=== PATIENT | male | born 1945 | race Caucasian/White ===

== ENCOUNTER 2020-05-18 15:47 | Outpatient (CLI) | payer MEDICARE, BC ==
--- NOTE | 2020-05-18 16:05 | RAD ---
XR Chest Pa Lat STANDARD History: Cough Comparison: Radiograph 2011 Findings: Heart size is enlarged. AICD/pacer leads are similar. Abnormal peripheral and perihilar airspace opacities. Impression: Imaging findings of Covid pneumonia.
[2020-05-18 18:29] LABS: #Lymphocytes 0.5 thou/uL (1.20-3.40); #Monocytes 0.5 thou/uL (0.11-0.59); #Neutrophils 10.1 thou/uL (1.40-6.50); %Basophils 0.1 % (0.0-1.0); %Eosinophils 0.2 % (0.0-10.0); %Lymphocytes 4.7 % (21.0-51.0); %Monocytes 4.3 % (0.0-10.0); %Neutrophils 90.7 % (42.0-75.0); Hemoglobin 13.4 g/dL (14.0-18.0); Mean Corpuscular HGB CONC 34.2 g/dL (32.0-36.0); Mean Corpuscular Hemoglobin 31.8 pg (27.0-31.0); Platelet Count 141 thou/uL (130-400); RBC Distribution Width 12.6 % (11.5-14.5); Red Blood Cell (RBC) Count 4.19 mill/uL (4.70-6.10); White Blood Cell (WBC) Count 11.1 thou/uL (4.8-10.8)
[2020-05-18 19:05] LABS: ALT (SGPT) 22 U/L (8-55); AST (SGOT) 21 U/L (5-34); Albumin 3.3 g/dL (3.4-4.8); Alkaline Phosphatase 88 U/L (40-110); Anion Gap 15 mmol/L (10-20); BUN (Urea Nitrogen) 14 mg/dL (8.4-25.7); Bilirubin, Total 0.4 mg/dL (0.2-1.2); CRP (Inflammatory) 28.48 mg/dL (= or < 0.5); Calc. Creatinine Clearance 0 mL/min (70-130); Calcium 7.5 mg/dL (7.8-10.44); Carbon Dioxide 26 mmol/L (23-31); Chloride 101 mmol/L (98-107); Globulin 2.2 g/dL (2.4-3.5); Glucose 115 mg/dL (83-110); Potassium 3.7 mmol/L (3.5-5.1); Protein, Total 5.5 g/dL (5.8-8.1); Sodium 138 mmol/L (136-145)
== END 2020-05-18 15:48 | disposition home or self-care (01) ==
LOC: SCSRAD 15:47
PROVIDERS: ATTEND Family Medicine
DX: U07.1 COVID-19 (principal); I50.9 Heart failure, unspecified
CPT/HCPCS: 36415; 71046; 80053; 82728; 83880; 85025; 85379; 85652; 86140

== ENCOUNTER 2020-06-09 10:55 | Inpatient (IN) | payer MEDICARE, BC ==
[2020-06-09 12:36] VITALS: BMI 27.4
[2020-06-09] MEDS ORDERED: Ondansetron ODT 4 MG TAB PO PRN (12:57)
[2020-06-09] MEDS ORDERED: Acetaminophen 325 MG TAB PO PRN (12:57)
[2020-06-09] MEDS ORDERED: Calcium Carbonate 500 MG ChewTAB PO PRN (12:57)
[2020-06-09] MEDS ORDERED: predniSONE 20 MG TAB PO SCH (13:00)
[2020-06-09 13:34] LABS: #Basophils 0.1 thou/uL (0.0-0.2); #Eosinphils 0.1 thou/uL (0.0-0.7); #Lymphocytes 1.4 thou/uL (1.20-3.40); #Monocytes 0.8 thou/uL (0.11-0.59); #Neutrophils 4.2 thou/uL (1.40-6.50); %Basophils 0.8 % (0.0-1.0); %Eosinophils 1.4 % (0.0-10.0); %Lymphocytes 21.6 % (21.0-51.0); %Monocytes 11.6 % (0.0-10.0); %Neutrophils 64.7 % (42.0-75.0); Hemoglobin 12.7 g/dL (14.0-18.0); Mean Corpuscular HGB CONC 34.5 g/dL (32.0-36.0); Mean Corpuscular Volume 92.9 fL (78.0-98.0); Platelet Count 150 thou/uL (130-400); RBC Distribution Width 13.3 % (11.5-14.5); Red Blood Cell (RBC) Count 3.96 mill/uL (4.70-6.10); White Blood Cell (WBC) Count 6.5 thou/uL (4.8-10.8)
[2020-06-09] MEDS ORDERED: Furosemide 40 MG/4 ML VIAL SLOW IVP SCH (13:45)
[2020-06-09 13:56] LABS: ALT (SGPT) 10 U/L (8-55); AST (SGOT) 11 U/L (5-34); Albumin 3.3 g/dL (3.4-4.8); Alkaline Phosphatase 92 U/L (40-110); Anion Gap 14 mmol/L (10-20); BUN (Urea Nitrogen) 18 mg/dL (8.4-25.7); Bilirubin, Total 0.7 mg/dL (0.2-1.2); Calc. Creatinine Clearance 78 mL/min (70-130); Carbon Dioxide 30 mmol/L (23-31); Chloride 102 mmol/L (98-107); Globulin 3.1 g/dL (2.4-3.5); Glucose 107 mg/dL (83-110); Potassium 3.7 mmol/L (3.5-5.1); Protein, Total 6.4 g/dL (5.8-8.1); Sodium 142 mmol/L (136-145)
--- NOTE | 2020-06-09 14:00 | RAD ---
XR Chest Pa Lat STANDARD History: Shortness of breath Comparison: Radiograph 2 days prior Findings: Similar appearance of the peripheral and perihilar opacities. No pneumothorax. AICD/pacer i s similar. Multiple midline sternotomy wires. Left upper quadrant and right upper quadrant surgical clips. Intact left shoulder arthroplasty. Impression: Similar appearance of the chest without pneumothorax or pneumomediastinum.
--- NOTE | 2020-06-09 14:32 | PDOC.FPRHP ---
- History of Present Illness Chief Complaint: sob History of Present Illness: 74-year-old male with past medical history of CAD status post three-vessel CABG and CHF with reported history of 35% ejection fraction. He presents as a direct admit from home for shortness of breath. He was diagnosed with a positive Covid test on May 05 and had symptoms of cough congestion and shortness of breath. He had fevers as well. Initially he improved but in the last week or 2 he has worsened. He states his shortness of breath has gotten worse however he has been afebrile. He states it is now difficult for him to have a conversation because he becomes so short of breath. No chest pain no palpitations - Allergies/Adverse Reactions Allergies Allergy/AdvReac Type Severity Reaction Status Date / Time hydrocodone Allergy Verified 06/09/20 13:45 - Home Medications Medication Instructions Recorded Confirmed Type Acetaminophen [Tylenol] 500 mg PO Q6HR PRN 06/09/20 06/09/20 History Amlodipine [Norvasc] 5 mg PO HS 06/09/20 06/09/20 History Aspirin [Ecotrin] 81 mg PO DAILY 06/09/20 06/09/20 History Atorvastatin Calcium [Lipitor] 20 mg PO HS 06/09/20 06/09/20 History Carvedilol [Coreg] 6.25 mg PO BID 06/09/20 06/09/20 History Cholecalciferol (Vitamin D3) 4,000 unit PO DAILY 06/09/20 06/09/20 History [Vitamin D] Clopidogrel Bisulfate [Plavix] 75 mg PO DAILY 06/09/20 06/09/20 History Dexlansoprazole [Dexilant] 60 mg PO DAILY 06/09/20 06/09/20 History Fluticasone/Salmeterol [Advair 1 inh IH BID 06/09/20 06/09/20 History Diskus 100/50] Furosemide [Lasix] 40 mg PO DAILY 06/09/20 06/09/20 History Losartan Potassium [Cozaar] 50 mg PO HS 06/09/20 06/09/20 History Magnesium Chloride [Slow-Mag] 64 mg PO BID 06/09/20 06/09/20 History Melatonin 2.5 mg PO HS 06/09/20 06/09/20 History Niacin 500 mg PO HS 06/09/20 06/09/20 History Nitroglycerin [Nitrolingual 0.4 mg 1 spray SL Q5MIN PRN 06/09/20 06/09/20 History [place]] QUEtiapine Fumarate [Seroquel] 50 mg PO HS 06/09/20 06/09/20 History Ubidecarenone [Co Q-10] 100 mg PO BID 06/09/20 06/09/20 History - History PMHx: CAD s/p CABG and stents, presence of AICD, CHF, COPD, HTN, Hx of [place] PSHx: shoulder surgery FHx: [place], lung cancer Social: former smoker (14 pack year), no Alcohol or drugs - Review of Systems General: reports: fatigue. denies: fever/chills Eyes: denies: eye pain, vision changes ENT: reports: nasal congestion. denies: rhinorrhea Respiratory: reports: cough, congestion, shortness of breath Cardiovascular: denies: chest pain, palpitation Gastrointestinal: denies: nausea, vomiting Genitourinary: denies: incontinence, dysuria Skin: denies: rashes, lesions Musculoskeletal: denies: pain, tenderness Neurological: denies: numbness, syncope, seizure Psychological: denies: anxiety, depression - Vital signs BP: [133/84] HR: [68] RR: [20] Tmax: [98.5] Pox: [97]% on [ra] Wt: [89] - Physical Exam Constitutional: NAD, awake, alert and oriented HEENT: EOMI, grossly normal vision, grossly normal hearing Neck: supple, FROM Chest: no-tender to palpation, no lesions Heart: RRR, normal S1/S2 -Lungs: diffuse expiratory wheezing, crackels Abdomen: soft, non-tender Musculoskeletal: normal structure, normal tone Neurological: no focal deficit, CN II-XII intact Skin: no rash/lesions, good turgor Heme/Lymphatic: no unusual bruising or bleeding, no purpura Psychiatric: normal mood and affect, good judgment and insight FMR H&P: Results - Labs Result Diagrams: 06/10/20 05:47 06/10/20 05:47 Lab results: WBC 6.5 thou/uL (4.8-10.8) 06/09/20 13:23 Hgb 12.7 g/dL (14.0-18.0) L 06/09/20 13:23 Hct 36.8 % (42.0-52.0) L 06/09/20 13:23 MCV 92.9 fL (78.0-98.0) 06/09/20 13:23 Plt Count 150 thou/uL (130-400) 06/09/20 13:23 Neutrophils % 64.7 % (42.0-75.0) 06/09/20 13:23 Sodium 142 mmol/L (136-145) 06/09/20 13:23 Potassium 3.7 mmol/L (3.5-5.1) 06/09/20 13:23 Chloride 102 mmol/L (98-107) 06/09/20 13:23 Carbon Dioxide 30 mmol/L (23-31) 06/09/20 13:23 BUN 18 mg/dL (8.4-25.7) 06/09/20 13:23 Creatinine 1.06 mg/dL (0.7-1.3) 06/09/20 13:23 Glucose 107 mg/dL (83-110) 06/09/20 13:23 Calcium 9.0 mg/dL (7.8-10.44) 06/09/20 13:23 Total Bilirubin 0.7 mg/dL (0.2-1.2) 06/09/20 13:23 AST 11 U/L (5-34) 06/09/20 13:23 ALT 10 U/L (8-55) 06/09/20 13:23 Alkaline Phosphatase 92 U/L (40-110) 06/09/20 13:23 Serum Total Protein 6.4 g/dL (5.8-8.1) 06/09/20 13:23 Albumin 3.3 g/dL (3.4-4.8) L 06/09/20 13:23 FMR H&P: A/P - Plan ROMERO PENN PGY3 Assessment and plan COPD exacerbation A- patient is stable on room air, exacerbation will be treated with steroids and duo nebs. Considering no changes in sputum for the worse no antibiotics required at this time. Chest x-ray unchanged from previous. Will get EKG P-prednisone 40 mg x 5 days -DuoNebs scheduled every 6 hours, every 2 hours as needed -Goal O2 sat is above 88% CHF exacerbation A- patient reported ejection fraction of 35%, will repeat. Patient is stable on room air. At home he is on 80 mg p.o. Lasix every morning P-furosemide 80 mg IV twice daily -Strict ins and outs -Daily weights -Fluid restriction diet Covid PUI Considering possibility that patient may still be shedding virus will repeat test. If negative will take off isolation precautions. Hypertension, COPD, presence of AICD, CAD status post CABG and stents Stable, continue home medications CODE STATUS: DNAR PCP Cierra Disposition: Observation, expect less than 2 midnights FMR H&P: Upper Level - Plan Date/Time: 06/09/20 1714 I, [], have evaluated this patient and agree with findings/plan as outlined by manager of internal audit resident. Pertinent changes/additions are listed here. Addendum - Attending - Attending Attestation Date/Time: 06/10/20 [id number] I personally evaluated the patient and discussed the management with Dr. Penn yesterday. I agree with the History, Examination, Assessment and Plan documented above with any addition or exceptions noted below. I think there is both a CHF and COPD component to Mr. Kinney's illness. We are treating both.
[2020-06-09] MEDS ORDERED: Albuterol 200 PUFF (6.7GM INHALER) INH PRN (17:15)
[2020-06-09] MEDS: Albuterol 200 PUFF (6.7GM INHALER) INH SCH (18:21)
[2020-06-09] MEDS: Carvedilol 6.25 MG TAB PO SCH (20:51)
[2020-06-09] MEDS: Magnesium Chloride 64 MG TAB PO SCH (20:52)
[2020-06-09] MEDS: Atorvastatin Calcium 20 MG TAB PO SCH (20:52)
[2020-06-09] MEDS: Amlodipine 5 MG TAB PO SCH (20:52)
[2020-06-09] MEDS: Losartan 25 MG TAB PO SCH (20:52)
[2020-06-09] MEDS: Niacin 500 MG TAB PO SCH (20:53)
[2020-06-09] MEDS: Ubidecarenone 50 MG CAP PO SCH (20:53)
[2020-06-09] MEDS ORDERED: Melatonin 3 MG TAB PO SCH (21:00)
[2020-06-10] MEDS: Albuterol 200 PUFF (6.7GM INHALER) INH SCH ×4 (01:37→18:32)
[2020-06-10] MEDS: Furosemide 40 MG/4 ML VIAL SLOW IVP SCH ×2 (05:48→13:54)
[2020-06-10 06:17] LABS: #Lymphocytes 1.4 thou/uL (1.20-3.40); #Monocytes 0.6 thou/uL (0.11-0.59); #Neutrophils 7.1 thou/uL (1.40-6.50); %Basophils 0.1 % (0.0-1.0); %Eosinophils 0.2 % (0.0-10.0); %Lymphocytes 15.3 % (21.0-51.0); %Monocytes 6.3 % (0.0-10.0); %Neutrophils 78.1 % (42.0-75.0); Hemoglobin 12.4 g/dL (14.0-18.0); Mean Corpuscular HGB CONC 33.5 g/dL (32.0-36.0); Mean Corpuscular Hemoglobin 30.6 pg (27.0-31.0); Mean Corpuscular Volume 91.1 fL (78.0-98.0); Mean Platelet Volume 7.2 fL (7.4-10.4); Platelet Count 167 thou/uL (130-400); RBC Distribution Width 13.3 % (11.5-14.5); Red Blood Cell (RBC) Count 4.05 mill/uL (4.70-6.10)
[2020-06-10 06:40] LABS: Anion Gap 15 mmol/L (10-20); BUN (Urea Nitrogen) 21 mg/dL (8.4-25.7); Calc. Creatinine Clearance 76 mL/min (70-130); Calcium 8.9 mg/dL (7.8-10.44); Carbon Dioxide 27 mmol/L (23-31); Chloride 102 mmol/L (98-107); Glucose 114 mg/dL (83-110); Potassium 3.9 mmol/L (3.5-5.1); Sodium 140 mmol/L (136-145)
--- NOTE | 2020-06-10 06:54 | PDOC.FM ---
- Subjective Subjective: Pt states he is feeling much better after diuresis yesterday. He is still having coughing and reports pain in ribs with coughing. He was taking a cough suppressant at home that had been working but he is unsure of the name. - Objective Vital Signs & Weight: Vital Signs (12 hours) Temp Pulse Resp BP BP Pulse Ox 06/10/20 04:00 97.9 F 80 18 109/75 93 L 06/10/20 00:37 97.8 F 68 18 101/67 93 L 06/10/20 00:09 93 L 06/09/20 20:52 79 116/78 06/09/20 20:51 116/78 06/09/20 20:00 98.3 F 79 20 116/78 93 L Weight Weight 86.9 kg I&O: 06/08/20 06/09/20 06/10/20 06:59 06:59 06:59 Intake Total 900 Output Total 1800 Balance -900 Result Diagrams: 06/10/20 05:47 06/11/20 06:07 Phys Exam - Physical Examination Constitutional: NAD was able to have conversation, had periodic coughing HEENT: sclera anicteric Neck: supple, full ROM Mild expiratory wheezing on R lower lung [place] Cardiovascular: RRR, no significant murmur Gastrointestinal: soft, non-tender Musculoskeletal: no edema Neurological: non-focal, moves all 4 limbs Psychiatric: normal affect, A&O x 3 Skin: no rash Dx/Plan - Plan Plan: COPD exacerbation w/ component of CHF exacerbation -pt has hx of COPD and was diagnosed with COVID on 05/05/20 -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[facility], pt reports EF of 35%, pending echo -has lasix po as home med, was started on IV lasix in hospital with good urine output -BNP 59 -CXR: unchanged from previous -steroids and duonebs started on admission -strict I/Os, -900mL since admission -will continue IV lasix and monitor clinical improvement -has not required supplemental oxygen since admission, will have nursing do walking trial Hx of Covid -aware, positive test result on 05/05/20 -test here is negative Hypertension, COPD, presence of AICD, CAD status post CABG and stents Stable, continue home medications CODE STATUS: DNAR PCP Cierra Disposition: Admit medical service obs, will discharge when clinical picture improved, expected LOS < 48hrs Addendum - Attending - Attending Attestation Date/Time: 06/11/20 0712 I personally evaluated the patient and discussed the management with Dr. Garcia yesterday. I agree with the History, Examination, Assessment and Plan documented above with any addition or exceptions noted below.
[2020-06-10] MEDS: Aspirin 81 mg Enteric Coated Tablet PO SCH (07:59)
[2020-06-10] MEDS: Carvedilol 6.25 MG TAB PO SCH ×2 (08:00→20:05)
[2020-06-10] MEDS: Cholecalciferol 1,000 UNITS (25 MCG) TAB PO SCH (08:00)
[2020-06-10] MEDS: Clopidogrel Bisulfate 75 MG TAB PO SCH (08:00)
[2020-06-10] MEDS: Benzonatate 100 MG CAP PO PRN ×2 (08:00→20:06)
[2020-06-10] MEDS: Magnesium Chloride 64 MG TAB PO SCH ×2 (08:01→20:06)
[2020-06-10] MEDS: Ubidecarenone 50 MG CAP PO SCH ×2 (08:01→20:06)
[2020-06-10] MEDS: predniSONE 20 MG TAB PO SCH (08:01)
[2020-06-10] MEDS: Enoxaparin Sodium 40 MG/0.4 ML SYRINGE SC SCH (08:02)
[2020-06-10 08:31] LABS: SARS-CoV-2 PCR by NAA Not Detected (NotDetected)
[2020-06-10] MEDS ORDERED: Furosemide 40 MG TAB PO SCH (09:00)
[2020-06-10] MEDS: Amlodipine 5 MG TAB PO SCH (20:04)
[2020-06-10] MEDS: Losartan 25 MG TAB PO SCH (20:05)
[2020-06-10] MEDS: Atorvastatin Calcium 20 MG TAB PO SCH (20:06)
[2020-06-10] MEDS: Niacin 500 MG TAB PO SCH (20:06)
[2020-06-10] MEDS ORDERED: Melatonin 3 MG TAB PO SCH (21:00)
--- NOTE | 2020-06-11 05:58 | PDOC.FM ---
- Subjective Subjective: Pt says he feels about the same as yesterday. Still having SOB and feeling tired. He says sx have been the same for about 3 weeks. Tolerating diet. - Objective Vital Signs & Weight: Vital Signs (12 hours) Temp Pulse Resp BP Pulse Ox 06/11/20 04:00 97.7 F 73 20 99/65 93 L 06/11/20 00:38 94 L 06/11/20 00:00 98.4 F 86 18 96/58 L 94 L 06/10/20 20:04 85 06/10/20 20:00 98.0 F 86 20 120/80 94 L Weight Weight 86.9 kg I&O: 06/09/20 06/10/20 06/11/20 06:59 06:59 06:59 Intake Total 900 Output Total 1800 Balance -900 Result Diagrams: 06/10/20 05:47 06/11/20 06:07 Phys Exam - Physical Examination Constitutional: NAD pt tachypneic, not able to complete full sentences HEENT: sclera anicteric Neck: supple, full ROM tachypneic, mild end exp wheezing Cardiovascular: RRR, no significant murmur Gastrointestinal: soft, non-tender Musculoskeletal: no edema Neurological: non-focal, moves all 4 limbs Psychiatric: normal affect, A&O x 3 Skin: no rash Dx/Plan - Plan Plan: COPD exacerbation w/ component of CHF exacerbation -pt has hx of COPD and was diagnosed with COVID on 05/05/20 -echo: EF 35-40% w/ grade 1/3 diastolic dysfunction -has lasix po as home med, was started on IV lasix in hospital with good urine output -BNP 59 -CXR: unchanged from previous -steroids and duonebs started on admission -strict I/Os, -900mL since admission -will continue IV lasix and monitor clinical improvement -has not required supplemental oxygen since admission -nurse did walking test yesterday and O2 sats stayed above 93% on room air -pt continues to be tachypneic but with normal O2 sats, will order d-dimer, b/l LE venous doppler and abg to further assess. 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 Garcia. I agree with the History, Examination, Assessment and Plan documented above with any addition or exceptions noted below. His RODRIGUEZ adn shortness of breath has responded to lasix and COPD treatment. His cardiac echo is at baseline. His O2 sats have remained at 93-95% on RA even with walking, so he has not qualified for home oxygen. DVT eval is negative and ABG does not reveal an aA gradient to suggest a PE. He appears to have lingering sequelae form his covid pneumonia last month. We are considering discharge with follow up next week.
[2020-06-11 06:40] LABS: Anion Gap 12 mmol/L (10-20); BUN (Urea Nitrogen) 36 mg/dL (8.4-25.7); Calc. Creatinine Clearance 46 mL/min (70-130); Calcium 9.1 mg/dL (7.8-10.44); Carbon Dioxide 32 mmol/L (23-31); Chloride 99 mmol/L (98-107); Glucose 108 mg/dL (83-110); Potassium 3.4 mmol/L (3.5-5.1); Sodium 140 mmol/L (136-145)
[2020-06-11] MEDS: Furosemide 40 MG/4 ML VIAL SLOW IVP SCH (06:52)
[2020-06-11] MEDS: Albuterol 200 PUFF (6.7GM INHALER) INH SCH ×3 (06:58→13:30)
[2020-06-11] MEDS: Aspirin 81 mg Enteric Coated Tablet PO SCH (08:37)
[2020-06-11] MEDS: Carvedilol 6.25 MG TAB PO SCH (08:37)
[2020-06-11] MEDS: predniSONE 20 MG TAB PO SCH (08:37)
[2020-06-11] MEDS: Clopidogrel Bisulfate 75 MG TAB PO SCH (08:38)
[2020-06-11] MEDS: Magnesium Chloride 64 MG TAB PO SCH (08:38)
[2020-06-11] MEDS: Cholecalciferol 1,000 UNITS (25 MCG) TAB PO SCH (08:38)
[2020-06-11] MEDS: Enoxaparin Sodium 40 MG/0.4 ML SYRINGE SC SCH (08:39)
[2020-06-11] MEDS: Ubidecarenone 50 MG CAP PO SCH (08:39)
[2020-06-11] MEDS ORDERED: Potassium Chloride 20 MEQ TAB PO SCH (10:15)
[2020-06-11 12:06] LABS: Actual Bicarbonate (HCO3a) 27.4 mEq/L (22-28); Base Excess (BEa) 3.9 mEq/L (-2.0 to +3.0); CO2 Tension 37.7 mmHg (35.0-45.0); Calcium, Ionized (arterial) 1.19 mmol/L (1.12-1.30); Hemoglobin (Hb) 14.6 g/dL (14.0-18.0); O2 Tension (PaO2), arterial 64.8 mmHg (> 70.0); Potassium - ABG Lab 3.85 mmol/L (3.70-5.30); pH, Arterial 7.48 (7.35-7.45)
[2020-06-11 12:10] LABS: Puncture Site RRA
[2020-06-11 12:11] LABS: ALV-art Gradient 37.805 mmHg (0-20)
[2020-06-11 13:21] LABS: Thyroid Stimulating Hormone 1.8997 uIU/mL (0.35-4.94)
[2020-06-11 13:38] LABS: Vitamin D, 25 Hydroxy 48.8 ng/ml (> 30.0)
--- NOTE | 2020-06-11 14:52 | ULT ---
US Venous Doppler Bilat History: Tachypnea Comparison: None. Findings: Real-time grayscale, color and spectral analysis of the bilateral lower extremity venous sy stem was performed. The common femoral, femoral, proximal portions greater saphenous and deep femoral veins as well as the popliteal and posterior tibial veins were interrogated. Normal flow, augmentation and compression. Impression: No deep venous thrombosis.
[2020-06-11 16:18] VITALS: BP 115/75; TEMP 98.4
--- NOTE | 2020-06-12 08:28 | PQF ---
CLINICAL DOCUMENTATION CLARIFICATION FORM: Dear : Arturo Sawyer Date / Time: 06/12/2020 Please exercise your independent, professional judgment in responding to the clarification form. Clinical indicators are provided on the bottom of this form for your review Please check appropriate box(es): HEART FAILURE: A. ACUITY [ ] Acute [ x ] Acute on Chronic [ ] Chronic B. TYPE: [ ] Systolic / HFrEF [ ] Diastolic / HFpEF [x ] Combined Systolic / Diastolic [ ] Other diagnosis [ ] Unable to determine In addition, please specify: Present on Admission (POA): [ x ] Yes [ ] No [ ] Unable to determine To be completed by CDI/Coding staff for physician review: Present Clinical Indicators - Signs / Symptoms / Labs Results and Location in Medical Record [ x ] CHF exacerbation. Patient reported ejection fracture of 35 percent, will repeat. At home, he is on 80 mg Lasix every morning. Take furosemide 80 mg iv twice daily, strict ins and outs, daily weights, fluid restriction diet H and P [ x ] COPD exacerbation with component of CHF exacerbation, was started on IV Lasix in hospital with good urine output Progress note 06/10 by Arturo Torres [ x ] His RODRIGUEZ and shortness of breath responded to Lasix and COPD treatment Progress note 06/11 by Arturo Torres [ x ] Ejection fraction is visually estimated at 35-40. grade 1/3 diastolic dysfunction Echo 06/10 Present Risk Factors Results and Location in Medical Record [ x ] History of CAD, CABG, stents and AICD and CHF. Also hypertension H and P Present Treatments Results and Location in Medical Record [ x ] Echocardiogram 06/10 Reports [ x ] IV Lasix 06/10-06/11 Medications [ x ] Chest x-ray 06/09 Reports CDS/Resident Care Assistant Signature: [email or web address] Phone #: Date/Time: 06/12/2020_ This is a permanent part of the Medical Record [facility]
--- NOTE | 2020-06-12 14:02 | DIS ---
DATE OF ADMISSION: 06/10/2020 DATE OF DISCHARGE: 06/11/2020 RESIDENT: Cindy Garcia, PGY-1. ADMITTING AND DISCHARGE ATTENDING: Arturo Sawyer MD CONSULTS: None. PROCEDURES: None. PRIMARY DIAGNOSIS: Chronic obstructive pulmonary disease exacerbation with component of congestive heart failure exacerbation. SECONDARY DIAGNOSES: 1. History of COVID. 2. Hypertension. 3. Chronic obstructive pulmonary disease. 4. Coronary artery disease, status post coronary artery bypass grafting and stents. DISCHARGE MEDICATIONS: 1. Prednisone 40 mg with taper. 2. Acetaminophen 500 mg q.6 p.r.n. 3. Amlodipine 5 daily. 4. Aspirin 81 daily. 5. Atorvastatin 20 daily. 6. Carvedilol 6.25 b.i.d. 7. Vitamin D3 daily. 8. Plavix 75 daily. 9. Dexlansoprazole 60 mg daily. 10. Advair daily. 11. Lasix 40 daily. 12. Losartan 50 daily. 13. Magnesium chloride 64 mg b.i.d. 14. Melatonin 2.5 mg at bedtime. 15. Niacin 500 mg daily. 16. Nitroglycerin spray as needed. 17. Seroquel 50 mg at bedtime. 18. CoQ10 100 mg b.i.d. HISTORY OF PRESENT ILLNESS: The patient is a 74-year-old male with past history of COPD, CHF, CAD, who presents as a direct admit from his PCP's office for shortness of breath. He was diagnosed with COVID on May 05 and since then has had symptoms of cough and congestion. He says for the past 3 weeks, he has felt short of breath. He says his energy has also greatly decreased since being diagnosed with COVID. He has been seen by his PCP during this post-COVID time, but his family felt that he had worsened and were seeking further evaluation. Upon admission to the hospital, his labs were white count 6.5, hemoglobin 12.7, hematocrit 36.8, platelets 150. Sodium 142, potassium 3.7, BUN 18, creatinine 1.06. AST 11, ALT 10. His BNP was 59. His TSH was 1.9. His procal was 0.03. Considered this could be a component of COPD exacerbation versus CHF exacerbation and also post-COVID syndrome. He was treated with IV Lasix with improvement of some of his symptoms. He continued to have some tachypnea, shortness of breath, although never required any supplemental oxygen. He maintained his sats greater than 93% even with walking test. D-dimer was slightly elevated, so venous Doppler of lower extremities was completed and showed no signs of lower extremity DVT. Prior to discharge, a discussion was had with the patient and his about signs of respiratory distress. Discussed return to ED precautions. Also advised and encouraged the patient and about long-haulers syndrome and what can be expected post COVID for some patients. DISPOSITION: Stable. DISCHARGE INSTRUCTIONS: 1. Location: Home. 2. Diet: Heart healthy. 3. Activity: As tolerated. 4. Followup: Follow up with his PCP within 7 days. Job ID: [id number] [facility] HOSPITALGabriel
[2020-06-15] MEDS ORDERED: predniSONE 20 MG TAB PO SCH (08:00)
--- NOTE | 2020-06-16 15:11 | EKG ---
Test Reason : Blood Pressure : / mmHG Vent. Rate : 070 BPM Atrial Rate : 070 BPM P-R Int : 220 ms QRS Dur : 116 ms QT Int : 422 ms P-R-T Axes : 051 008 108 degrees QTc Int : 455 ms Sinus rhythm with 1st degree A-V block Inferior infarct , age undetermined Abnormal ECG No previous ECGs available Confirmed by MINERVA HAN (2) on 06/16/2020 3:11:05 PM Referred By: ALEJANDRO ORNELAS Confirmed By:MINERVA HAN
[2020-06-18] MEDS ORDERED: predniSONE 20 MG TAB PO SCH (08:00)
== END 2020-06-11 18:10 | disposition home or self-care (01) | DRG 292 ==
LOC: T4-A 11:46 → OBSVTOIN 06-10 17:05
PROVIDERS: ADMIT Family Medicine; ATTEND Family Medicine
DX: I11.0 Hypertensive heart disease with heart failure (principal); J44.1 Chronic obstructive pulmonary disease with (acute) exacerbation; I50.43 Acute on chronic combined systolic (congestive) and diastolic (congestive) heart failure; I25.10 Atherosclerotic heart disease of native coronary artery without angina pectoris; Z66 Do not resuscitate; Z20.822 Contact with and (suspected) exposure to COVID-19; Z95.1 Presence of aortocoronary bypass graft; Z88.8 Allergy status to other drugs, medicaments and biological substances; Z79.82 Long term (current) use of aspirin; Z95.5 Presence of coronary angioplasty implant and graft; I25.2 Old myocardial infarction; Z95.810 Presence of automatic (implantable) cardiac defibrillator; Z87.891 Personal history of nicotine dependence; Z86.16 Personal history of COVID-19
CPT/HCPCS: 36415; 36600; 71046; 80048; 80053; 82306; 82805; 83880; 84145; 84443; 85025; 85379; 87635; 93005; 93010; 93306; 93970; 94640; 96374; 96376; G0378; J1650; J1940; J7512; J7620; U0003; U0005

== ENCOUNTER 2020-07-06 09:37 | Inpatient (IN) | payer MEDICARE, BC ==
[2020-07-06 10:23] LABS: #Eosinphils 0.2 thou/uL (0.0-0.7); #Lymphocytes 1.4 thou/uL (1.20-3.40); #Monocytes 0.3 thou/uL (0.11-0.59); #Neutrophils 3.7 thou/uL (1.40-6.50); %Basophils 0.3 % (0.0-1.0); %Eosinophils 2.8 % (0.0-10.0); %Lymphocytes 25.4 % (21.0-51.0); %Monocytes 5.9 % (0.0-10.0); %Neutrophils 65.6 % (42.0-75.0); Hemoglobin 11.1 g/dL (14.0-18.0); Mean Corpuscular HGB CONC 34.4 g/dL (32.0-36.0); Mean Corpuscular Hemoglobin 31.8 pg (27.0-31.0); Mean Corpuscular Volume 92.4 fL (78.0-98.0); Platelet Count 245 thou/uL (130-400); RBC Distribution Width 14.5 % (11.5-14.5); Red Blood Cell (RBC) Count 3.49 mill/uL (4.70-6.10); White Blood Cell (WBC) Count 5.6 thou/uL (4.8-10.8)
[2020-07-06 10:50] LABS: ALT (SGPT) 17 U/L (8-55); AST (SGOT) 13 U/L (5-34); Albumin 3.2 g/dL (3.4-4.8); Alkaline Phosphatase 93 U/L (40-110); Anion Gap 14 mmol/L (10-20); BUN (Urea Nitrogen) 15 mg/dL (8.4-25.7); Bilirubin, Total 0.6 mg/dL (0.2-1.2); CK (CPK) 24 U/L (30-200); Calc. Creatinine Clearance 0 mL/min (70-130); Calcium 8.7 mg/dL (7.8-10.44); Carbon Dioxide 28 mmol/L (23-31); Chloride 104 mmol/L (98-107); Globulin 2.9 g/dL (2.4-3.5); Glucose 124 mg/dL (83-110); Lipase 41 U/L (8-78); Potassium 3.7 mmol/L (3.5-5.1); Protein, Total 6.1 g/dL (5.8-8.1); Sodium 142 mmol/L (136-145)
[2020-07-06] MEDS ORDERED: Iopamidol-370 76% 500 ML 1 ML ONE (10:50)
[2020-07-06 10:59] LABS: INR-International Normal Ratio 1.1; PTT 37.5 sec (22.9-36.1); Prothrombin Time 14.3 sec (12.0-14.7)
[2020-07-06] MEDS ORDERED: Aspirin Chewable 81 MG TAB ONE (11:28)
[2020-07-06] MEDS ORDERED: Acetaminophen 325 MG TAB PO PRN (13:33)
[2020-07-06 14:32] LABS: Hemoglobin A1c 5.4 % (4.0-6.0)
[2020-07-06 18:06] VITALS: BMI 26.0
[2020-07-06] MEDS: Losartan 25 MG TAB PO SCH (19:56)
[2020-07-06] MEDS: Atorvastatin Calcium 40 MG TAB PO SCH (19:56)
[2020-07-06] MEDS: Carvedilol 6.25 MG TAB PO SCH (19:57)
[2020-07-06] MEDS: Ubidecarenone 50 MG CAP PO SCH (19:57)
[2020-07-06] MEDS: Melatonin 3 MG TAB PO SCH (19:57)
[2020-07-06] MEDS: Mometasone 100 MCG/Formoterol 5 MCG 120 PUFF INHALER INH SCH (20:01)
[2020-07-06] MEDS ORDERED: Non-Formulary Item 1 EACH (Fluticasone/Salmeterol [Advair Diskus 100/50] 1 EACH Blst.W.De IH SCH (21:00)
[2020-07-07 05:00] LABS: Cardiac Risk 4.8 (Less than 4.5)
[2020-07-07] MEDS: Mometasone 100 MCG/Formoterol 5 MCG 120 PUFF INHALER INH SCH ×2 (07:29→20:06)
[2020-07-07] MEDS ORDERED: Aspirin 325 mg Enteric Coated Tablet PO SCH (09:00)
[2020-07-07] MEDS ORDERED: Aspirin 81 mg Enteric Coated Tablet PO SCH (09:00)
[2020-07-07] MEDS ORDERED: Enoxaparin Sodium 40 MG/0.4 ML SYRINGE SC SCH (09:00)
[2020-07-07] MEDS: Enoxaparin Sodium 40 MG/0.4 ML SYRINGE SC SCH (10:03)
[2020-07-07] MEDS: Aspirin 81 mg Enteric Coated Tablet PO SCH (10:04)
[2020-07-07] MEDS: Cholecalciferol 1,000 UNITS (25 MCG) TAB PO SCH (10:04)
[2020-07-07] MEDS: Ubidecarenone 50 MG CAP PO SCH ×2 (10:04→19:53)
[2020-07-07] MEDS: Clopidogrel Bisulfate 75 MG TAB PO SCH (10:04)
[2020-07-07] MEDS: Carvedilol 6.25 MG TAB PO SCH ×2 (10:04→19:54)
[2020-07-07] MEDS: Furosemide 40 MG TAB PO SCH (10:05)
[2020-07-07] MEDS: Atorvastatin Calcium 40 MG TAB PO SCH (19:53)
[2020-07-07] MEDS: Melatonin 3 MG TAB PO SCH (19:54)
[2020-07-07] MEDS: Losartan 25 MG TAB PO SCH (19:54)
[2020-07-08] MEDS: Mometasone 100 MCG/Formoterol 5 MCG 120 PUFF INHALER INH SCH ×2 (07:22→18:25)
[2020-07-08] MEDS: Enoxaparin Sodium 40 MG/0.4 ML SYRINGE SC SCH (09:52)
[2020-07-08] MEDS: Ubidecarenone 50 MG CAP PO SCH ×2 (09:52→20:39)
[2020-07-08] MEDS: Carvedilol 6.25 MG TAB PO SCH ×2 (09:53→20:39)
[2020-07-08] MEDS: Clopidogrel Bisulfate 75 MG TAB PO SCH (09:53)
[2020-07-08] MEDS: Furosemide 40 MG TAB PO SCH (09:53)
[2020-07-08] MEDS: Aspirin 81 mg Enteric Coated Tablet PO SCH (09:53)
[2020-07-08] MEDS: Cholecalciferol 1,000 UNITS (25 MCG) TAB PO SCH (09:53)
[2020-07-08] MEDS: Melatonin 3 MG TAB PO SCH (20:39)
[2020-07-08] MEDS: Atorvastatin Calcium 40 MG TAB PO SCH (20:39)
[2020-07-08] MEDS: Losartan 25 MG TAB PO SCH (20:39)
[2020-07-09] MEDS: Mometasone 100 MCG/Formoterol 5 MCG 120 PUFF INHALER INH SCH ×2 (06:41→19:47)
[2020-07-09] MEDS: Cholecalciferol 1,000 UNITS (25 MCG) TAB PO SCH (09:14)
[2020-07-09] MEDS: Ubidecarenone 50 MG CAP PO SCH (09:14)
[2020-07-09] MEDS: Enoxaparin Sodium 40 MG/0.4 ML SYRINGE SC SCH (09:15)
[2020-07-09] MEDS: Carvedilol 6.25 MG TAB PO SCH (09:15)
[2020-07-09] MEDS: Clopidogrel Bisulfate 75 MG TAB PO SCH (09:15)
[2020-07-09] MEDS: Aspirin 81 mg Enteric Coated Tablet PO SCH (09:15)
[2020-07-09] MEDS: Furosemide 40 MG TAB PO SCH (09:15)
[2020-07-09 12:34] VITALS: BP 122/70; TEMP 98.3
== END 2020-07-09 19:53 | DRG 65 ==
LOC: ERS 09:37 → ERHOLD 11:39 → 2SE 17:43
PROVIDERS: ADMIT Family Medicine; ATTEND Family Medicine
DX: I63.9 Cerebral infarction, unspecified (principal); I50.22 Chronic systolic (congestive) heart failure; Z66 Do not resuscitate; D64.9 Anemia, unspecified; I11.0 Hypertensive heart disease with heart failure; E78.5 Hyperlipidemia, unspecified; R29.705 NIHSS score 5; I25.10 Atherosclerotic heart disease of native coronary artery without angina pectoris; Z96.612 Presence of left artificial shoulder joint; Z86.16 Personal history of COVID-19; Z95.1 Presence of aortocoronary bypass graft; Z95.5 Presence of coronary angioplasty implant and graft; I25.2 Old myocardial infarction; Z90.49 Acquired absence of other specified parts of digestive tract; Z98.890 Other specified postprocedural states; Z87.891 Personal history of nicotine dependence; Z88.6 Allergy status to analgesic agent; Z79.82 Long term (current) use of aspirin; Z79.899 Other long term (current) drug therapy; Z79.01 Long term (current) use of anticoagulants; Z82.49 Family history of ischemic heart disease and other diseases of the circulatory system; Z80.1 Family history of malignant neoplasm of trachea, bronchus and lung; Z95.810 Presence of automatic (implantable) cardiac defibrillator; Z87.01 Personal history of pneumonia (recurrent)
CPT/HCPCS: 36415; 70450; 70496; 70498; 71045; 80053; 80061; 82550; 83036; 83605; 83690; 83880; 84443; 84484; 85025; 85610; 85730; 87040; 93005; 93306; 94664; J1650; Q9967

== ENCOUNTER 2020-07-26 11:14 | Outpatient (CLI) | payer MEDICARE, BC | END 2020-07-26 11:15 | disposition home or self-care (01) | LOC: BICRAD 11:14 | PROVIDERS: ATTEND Family Medicine | DX: M25.572 Pain in left ankle and joints of left foot (principal) ==

== ENCOUNTER 2022-05-02 10:38 | Outpatient (CLI) | payer MEDICARE, BC | END 2022-05-02 10:39 | disposition home or self-care (01) | LOC: RAD 10:38 | PROVIDERS: ATTEND Family Medicine | DX: R05.9 Cough, unspecified (principal); I51.7 Cardiomegaly | CPT/HCPCS: 71046 ==

== ENCOUNTER 2024-01-23 09:22 | Outpatient (CLI) | payer MEDICARE, BC ==
[2024-01-23] MEDS ORDERED: Iopamidol 370 76% 100 ML VIAL ONE (11:30)
== END 2024-01-23 09:23 | disposition home or self-care (01) ==
LOC: BICCT 09:22
PROVIDERS: ATTEND Family Medicine
DX: G45.9 Transient cerebral ischemic attack, unspecified (principal); R55 Syncope and collapse; J98.4 Other disorders of lung; R91.8 Other nonspecific abnormal finding of lung field
CPT/HCPCS: 36415; 70498; 82565; Q9967